=== PATIENT | female | born 1950 | race Caucasian/White ===

== ENCOUNTER 2017-12-23 15:01 | Emergency (ER) | payer OTHER, MEDICARE ==
[~2017-12-23] VITALS: Ht 154.9 cm; Wt 67.1 kg
[~2017-12-23 15:01] MED LIST: FLEXERIL PO; NEXIUM; PREDNISONE 20 M20 M1 PO; ULTRAM 50MG TAB50 MG PO; XANAX 0.5 MG0.5 M1 PO
[2017-12-23] MEDS ORDERED: EXCEDRIN CAPLE1 EACH PO (15:25)
[2017-12-23] MEDS ORDERED: VENTOLIN HFA 1818 GM INH (15:25)
[2017-12-23] MEDS ORDERED: ACETAMINOPHEN-1 EAC1 PO (16:38)
[2017-12-23 16:48] VITALS: BP 148/93
== END 2017-12-23 16:48 | disposition home or self-care (01) ==
LOC: M.ERS 15:01
DX: M54.5 Low back pain (principal); Z88.2 Allergy status to sulfonamides; Z88.5 Allergy status to narcotic agent